=== PATIENT | female | born 1960 | race Caucasian/White ===

== ENCOUNTER → 2016-06-29 | Outpatient (CLI) | payer BC | LOC: MC.RAD 06-24 15:00 | DX: Z12.31 Encounter for screening mammogram for malignant neoplasm of breast (principal) ==

== ENCOUNTER → 2017-07-24 | Outpatient (CLI) | payer BC | LOC: MC.RAD 07:59 | DX: Z12.31 Encounter for screening mammogram for malignant neoplasm of breast (principal) ==

== ENCOUNTER → 2018-08-15 | Outpatient (CLI) | payer BC | LOC: MC.RAD 10:56 | DX: Z12.31 Encounter for screening mammogram for malignant neoplasm of breast (principal) ==

== ENCOUNTER → 2019-09-13 | Outpatient (CLI) | payer BC | LOC: MC.RAD 08-19 11:00 | DX: Z12.31 Encounter for screening mammogram for malignant neoplasm of breast (principal) ==

== ENCOUNTER → 2021-06-24 | Outpatient (CLI) | payer BC | LOC: MC.RAD 05-24 11:30 | DX: Z12.31 Encounter for screening mammogram for malignant neoplasm of breast (principal) ==